=== PATIENT | female | born 1945 | race Caucasian/White ===

== ENCOUNTER 2018-09-10 13:57 | Outpatient (CLI) | payer MEDICARE, OTHER, SELFPAY ==
[2018-09-10] VITALS (8 sets, daily range): BP systolic 135–199; BP diastolic 47–78; PULSE 58–73; RESP 16–18; TEMP 36.1; O2SAT 93–95
--- NOTE | 2018-09-10 13:59 | DI.RAD.S_ITS ---
PROCEDURE: PAIN L/SI FACET INJ/BLK 1STL INDICATIONS: SPONDYLOSIS FINDINGS: Fluoroscopic spot filming was performed to verify placement of spinal needles at the L4, L5 and S1 level(s), as labeled on the films. Appropriate location(s) of the needle tip(s) was confirmed by injection of iodinated contrast. Dictated by: Ronaldo Contreras M.D. on 09/10/2018 at 16:31 Approved by: Ronaldo Contreras M.D. on 09/10/2018 at 16:32
[2018-09-10] MEDS: MIDAZOLAM 5 MG/5 ML VIAL IV (14:28)
[2018-09-10] MEDS: IOPAMIDOL 15 ML VIAL 3 ML INJ (14:34)
[2018-09-10] MEDS: BETAMETHASONE 30 MG/5 ML MDV 12 MG INJ (14:34)
[2018-09-10] MEDS: BUPIVACAINE 0.5% (PF) VIAL 2 ML INJ (14:34)
--- NOTE | 2018-09-10 14:36 | PC.NURSE ---
assisting pt off table and transporting to post proc area in stable condition
--- NOTE | 2018-09-10 14:39 | P.PCN_ITS ---
Procedures Date/Time Date of procedure: 09/10/18 Time of procedure: 14:38 General Procedure description: POST OP DIAGNOSIS 1. FACET ARTHROPATHY PROCEDURES 1. Right L4, L5 and S1 MB BLOCKS PHYSICIAN: Bruno Patterson DO JOSE Boothe is referred for treatment of Right Axial LBP. DESCRIPTION OF PROCEDURE Fluoroscopically guided, contrast-controlled right L4, L5 and S1 medial branch blocks with 0.5cc of 0.5% Marcaine. Following denial of allergy and review of potential side effects and complications, including, but not necessarily limited to, infection, allergic reaction, local tissue breakdown, nerve injury, paralysis, stroke and possible , the patient indicated that the patient understood and agreed to proceed. An informed consent document was signed by the patient, witnessed by a nurse, and placed in the patient's chart. After review of previous anaesthesic history and IV conscious sedation the patient was deemed safe to proceed with todays procedure with IV conscious sedation as ASA class II designation. Safety time-out was performed to confirm patient ID, procedure to be performed and site of procedure. IV sedation was accomplished with a combination of 3mg was administered by the RN after DO order , titrated to patient comfort during the course of the procedure while the patient remained responsive to all verbal commands In the prone position, following sterile prep and drape of the lumbar region, the right L4, L5 and S1 anatomical location of the medial branch of the dorsal ramus was identified fluoroscopically. Subsequently an anesthetic skin wheal using 1% lidocaine solution was initiated at each of the anatomical spots. Subsequently then a 22-gauge 3.5-inch spinal needle was atraumatically introduced and advanced under fluoroscopic guidance at each of the corresponding sites at the right L4, L5 and S1 MB. After negative aspiration, 0.2 cc of Isovue 200 was injected, confirming placement without vascular or intrathecal uptake. Subsequently then 0.5 cc of 0.5% Marcaine solution was injected at each of the corresponding sites at the right L4, L5 and S1 medial branch locations. The patient tolerated the procedure well without signs or symptoms of complications. The procedure tolerated the procedure well without signs or symptoms of complications prior to transfer to the recovery area continued monitoring without incident. Post-procedure, the patient was monitored initiating provocative activities to measure the amount of relief from block of the facetogenic pain. The patient reported a VAS of 7 prior to the procedure and a post-procedure VAS of 1. It has been a pleasure to assist in the diagnostic and therapeutic care of your patient. Total Fluoroscopy Time: 24.8 seconds Total Conscious Sedation Time: 24min POST OP INSTRUCTIONS The patient was provided with a Pain Log to complete over the next several hours and subsequent days prior to the patient's follow up with the ordering physician. If the patient has health care assistant relief to the solution applied, then they may be a candidate for medial branch rhizotomy. The patient is aware , was provided, once again, with a Pain Log and will follow up with the referring physician for review and clinical correlation Bruno Patterson DO Complications: none
--- NOTE | 2018-09-10 15:15 | PC.NURSE ---
Pt returned from procedure at 1442, via wheelchair, able to move from w/c to chair with standby assist. Pt alert and awake. Resumed monitoring from [facility] RO[facility].
--- NOTE | 2018-09-10 15:33 | PC.NURSE ---
hernan has been up walking in the pre procedure room as dr. ellington instructed. He wants to see her one more time before she is discharged.
== END 2018-09-10 16:05 ==
LOC: RAD 13:59
PROVIDERS: Visit Provider Physical Medicine & Rehabilitation
DX: M47.817 Spondylosis without myelopathy or radiculopathy, lumbosacral region (principal); M41.50 Other secondary scoliosis, site unspecified
CPT/HCPCS: 64493; 64494; 99152; J0702; J2250

== ENCOUNTER 2018-11-05 08:19 | Outpatient (CLI) | payer MEDICARE, OTHER, SELFPAY ==
[2018-11-05] VITALS (9 sets, daily range): BP systolic 112–152; BP diastolic 37–58; PULSE 69–73; RESP 16; TEMP 36; O2SAT 93–97
--- NOTE | 2018-11-05 08:20 | DI.RAD.S_ITS ---
PROCEDURE: PAIN L/S MED/LAT N RFA INDICATIONS: SPONDYLOSIS FINDINGS: Fluoroscopic spot filming was performed to verify placement of spinal needles at the right L4, L5, and S1 level(s), as labeled on the films. Appropriate location(s) of the needle tip(s) was confirmed by injection of iodinated contrast. IMPRESSION: Successful needle tip localization for medial branch rhizotomy procedure, adjacent to the expected course of the right L4, L5 and right S1 nerve roots. Dictated by: Jag Chen M.D. on 11/05/2018 at 11:16 Approved by: Jag Chen M.D. on 11/05/2018 at 11:17
[2018-11-05] MEDS: MIDAZOLAM 5 MG/5 ML VIAL IV (09:04)
--- NOTE | 2018-11-05 09:10 | PC.NURSE ---
Started with 2L NC and her O2 sats so I increased her oxygen to 4L for 94%.
[2018-11-05] MEDS: LIDOCAINE 1% 20 ML INJ 10 ML INJ (09:32)
[2018-11-05] MEDS: BETAMETHASONE 30 MG/5 ML MDV 12 MG INJ (09:32)
[2018-11-05] MEDS: BUPIVACAINE 0.5% (PF) VIAL 5 ML INJ (09:32)
--- NOTE | 2018-11-05 09:41 | PC.NURSE ---
Pt tolerated procedure, she was able to get off the table with standby assist. Transferred to pre procedure room via wheelchair for continued monitoring with [facility].
--- NOTE | 2018-11-05 09:45 | P.PCN_ITS ---
Procedures Date/Time Date of procedure: 11/05/18 Time of procedure: 09:44 General Procedure description: PREOP DIAGNOSIS 1. RECALCITRANT FACET ARTHROPATHY, POST OP DIAGNOSIS 1. RECALCITRANT FACET ARTHROPATHY, PROCEDURES 1. RIGHT L4 AND L5 MEDIAL BRANCH RADIOFREQUENCY NEUROTOMY AND RIGHT S1 DORSAL RAMUS BRANCH RADIOFREQUENCY NEUROTOMY, SURGEON: Bruno Patterson, DO INDICATIONS Joelle is referred by Dr. Choi for treatment of facet arthropathy. DESCRIPTION OF PROCEDURE Right L4 and L5 medial branch radiofrequency neurotomy and right S1 dorsal ramus branch radiofrequency neurotomy under fluoroscopy with conscious sedation. The patient is well known to this clinic having undergone previous facet injections with good but temporary relief. The patient has experienced appropriate, concordant relief with previous facet and median branch blocks but the patient's pain has been recalcitrant to further conservative measures. Therefore, based upon the patient's relief and persistent symptoms, the patient is considered an appropriate candidate for facet rhizotomy. All of the patient's questions regarding the risks versus benefits of the procedure, including, but not limited to, bleeding, infection, temporary as well as lasting nerve injury, paralysis, stroke, and , as well treatment alternatives were answered to satisfaction. After review of previous anaesthesic history and IV conscious sedation the patient was deemed safe to proceed with todays procedure with IV conscious sedation as ASA class II designation. Safety time-out was performed to confirm patient ID, procedure to be performed and site of procedure. IV sedation was accomplished with a combination of 3mg of Versed was administered by the RN after DO order, titrated to patient comfort during the course of the procedure while the patient remained responsive to all verbal commands. After obtaining informed consent, denial of pertinent drug allergies, as well as being made aware of the potential risks of bleeding, infection, spinal cord tra claudio, paralysis, temporary and permanent nerve damage, seizure, stroke, and possible , the patient was brought to the fluoroscopy suite and positioned prone on the fluoroscopy table. The lumbar region was prepped with Betadine and covered with a fenestrated drape in the usual sterile fashion. Appropriate monitors applied including pulse oximeter, pulse, and blood pressure for regular monitoring throughout the procedure. After local infiltration using 1% lidocaine, under fluoroscopic guidance, a 10- cm RF insulated needle with a 10-mm active tip was positioned parallel to the junction of the right sacral ala and the superior articulating process where the S1 dorsal ramus resides. Needle placement was confirmed with sensory stimulation at 50 Hz, with motor stimulation of .5v on the right which produced local stimulation without radicular component. The stimulation was then increased to 1.5v with, once again, only local multifidus stimulation without radicular component. This was then followed by two discreet lesions performed at 80 degrees Celsius for 90 seconds each. The needle was then removed and the identical procedure was performed along the length of the right L5 medial branch with motor stimulation at .7v on the right. The identical procedure was once again performed along the length of the right L4 medial branch with motor stimulation of .5v on the right. The patient tolerated the procedure well without signs or symptoms of complications prior to transfer to the recovery area continued monitoring without incident. The patient was then transferred to the recovery area where they were observed for an appropriate period of time after the injection. The patient was then transferred to the recovery area where they were observed for an appropriate period of time after the injection. The patient reported a VAS score of 9 prior to the procedure and a post- procedure VAS of 0. Total Fluoroscopy Time: 31 seconds Total Conscious Sedation Time: 45min POST OP INSTRUCTIONS The patient was provided a Pain Log to continue to record the patient's response to the target-specific procedure prior to the patient's follow-up visit with the referring physician. Additionally, specific post-injection care instructions and a contact number to our office were provided if concerns arise regarding possible complications associated with the procedure are suspected. Bruno Patterson DO Complications: none
--- NOTE | 2018-11-05 09:49 | PC.NURSE ---
ACCEPTED CARE OF PT IN POST PROC AREA IN STABLE CONDITION.
== END 2018-11-05 10:23 | disposition home or self-care (01) ==
LOC: RAD 08:20
PROVIDERS: PCP Family Medicine; Visit Provider Physical Medicine & Rehabilitation
DX: M47.817 Spondylosis without myelopathy or radiculopathy, lumbosacral region (principal)
CPT/HCPCS: 64635; 64636; 99152; J0702; J2250; J3010